=== PATIENT | male | born 1980 | race Caucasian/White ===

== ENCOUNTER 2023-09-13 16:58 | Emergency (ER) | payer SELFPAY ==
[2023-09-13] MEDS: Ibuprofen 600 MG Tab PO ONE (18:16)
[2023-09-13] MEDS: traMADol 50 MG Tab PO ONE (18:17)
== END 2023-09-13 18:23 | disposition home or self-care (01) ==
LOC: MW.ED 16:58
DX: M23.92 Unspecified internal derangement of left knee (principal); Z75.8 Other problems related to medical facilities and other health care; X50.0XXA Overexertion from strenuous movement or load, initial encounter; Y93.01 Activity, walking, marching and hiking
CPT/HCPCS: 73562; 99283; A9270